=== PATIENT | female | born 1950 | race African-American/Black ===

== ENCOUNTER 2017-11-27 09:27 | Outpatient (CLI) | payer MEDICARE ==
--- NOTE | 2017-11-27 10:49 | BD ---
DEXA BONE DENSITY STUDY: History: Post-menopausal. Lumbar Spine: BMD (g/cm2) L1 1.247 T-Score: +2.3 L2 1.194 T-Score: +1.5 L3 1.167 T-Score: +0.8 L4 1.234 T-Score: +1.6 L1-L4 1.210 T-Score: +1.5 Femoral Neck: 1.001 T-Score: +1.4 Total Femur: 1.210 T-Score: +2.2 Impression: 1. Normal bone mineral density of lumbar spine and left femoral neck. 2. Ten year fracture risk, major osteoporotic fracture 5.1%, hip fracture 0.1%. These fracture probab ilities are calculated for an untreated patient. POS: KUNAL
== END 2017-11-27 09:28 | disposition home or self-care (01) ==
LOC: BICMAMMO 09:27
PROVIDERS: ATTEND Family Medicine
DX: Z12.31 Encounter for screening mammogram for malignant neoplasm of breast (principal); Z13.820 Encounter for screening for osteoporosis; R92.1 Mammographic calcification found on diagnostic imaging of breast; Z78.0 Asymptomatic menopausal state
CPT/HCPCS: 77063; 77067; 77080

== ENCOUNTER 2020-02-09 09:22 | Outpatient (CLI) | payer MEDICARE ==
--- NOTE | 2020-02-09 09:58 | RAD ---
EXAM: XR Lumbar Spine 2 Or 3 View PROVIDED CLINICAL HISTORY: Lumbago COMPARISON: None FINDINGS: 5 nonrib-bearing lumbar-type vertebral bodies are demonstrated. There is slight anterolisthesis of L3 on L4. There is grade 1 anterolisthesis of L4 on L5. Vertebral body heights appear preserved. Mild disc space height loss at L4-5. Lower lumbar facet arthritis. Conspicuous vascular calcification is s een involving the abdominal aorta. Pedicles appear intact. SI joints appear symmetric. IMPRESSION: Lower lumbar disc and facet degenerative change.
== END 2020-02-09 09:23 | disposition home or self-care (01) ==
LOC: BICRAD 09:22
PROVIDERS: ATTEND Physician Assistant
DX: M54.42 Lumbago with sciatica, left side (principal); M47.816 Spondylosis without myelopathy or radiculopathy, lumbar region
CPT/HCPCS: 72100

== ENCOUNTER 2020-06-07 13:48 | Outpatient (CLI) | payer MEDICARE | END 2020-06-07 13:49 | disposition home or self-care (01) | LOC: BICMAMMO 13:48 | PROVIDERS: ATTEND Family Medicine | DX: Z12.31 Encounter for screening mammogram for malignant neoplasm of breast (principal) | CPT/HCPCS: 77063; 77067 ==

== ENCOUNTER 2023-02-24 15:51 | Outpatient (CLI) | payer MEDICARE ==
[2023-02-24 17:08] LABS: #Basophils 0.1 10x3/uL (0.0-0.2); #Eosinphils 0.8 10x3/uL (0.0-0.5); #Monocytes 0.8 10x3/uL (0.0-1.1); #Neutrophils 4.6 10x3/uL (1.5-8.4); %Basophils 0.6 % (0.0-2.0); %Eosinophils 7.5 % (0.0-6.0); %Lymphocytes 43.2 % (18.0-47.0); %Monocytes 6.9 % (0.0-10.0); %Neutrophils 41.4 % (40.0-75.0); Hematocrit 38.2 % (34.9-44.5); Mean Corpuscular Hemoglobin 30.4 pg (27.0-33.0); Mean Corpuscular Volume 89.3 fl (81.6-98.3); Platelet Count 310 10x3/uL (150-450); RBC Distribution Width 13.3 % (11.5-14.5); Red Blood Cell (RBC) Count 4.28 10x6/uL (3.90-5.03); White Blood Cell (WBC) Count 11.1 10x3/uL (3.5-10.5)
[2023-02-24 17:16] LABS: Prothrombin Time 10.6 sec (9.5-12.1)
[2023-02-24 17:21] LABS: Anion Gap 17 mmol/L (10-20); BUN (Urea Nitrogen) 8 mg/dL (9.8-20.1); Calc. Creatinine Clearance 0 mL/min (70-130); Calcium 9.2 mg/dL (7.8-10.44); Carbon Dioxide 21 mmol/L (23-31); Chloride 104 mmol/L (98-107); Estimated GFR 77; Glucose 152 mg/dL (80-115); Potassium 3.5 mmol/L (3.5-5.1); Sodium 138 mmol/L (136-145)
== END 2023-02-24 15:52 | disposition home or self-care (01) ==
LOC: LABBT 15:51
PROVIDERS: ATTEND Orthopaedic Surgery
DX: Z01.818 Encounter for other preprocedural examination (principal); M17.11 Unilateral primary osteoarthritis, right knee
CPT/HCPCS: 80048; 85025; 85610; 87081; 93005; 93010

== ENCOUNTER 2023-02-25 06:36 | Inpatient (IN) | payer MEDICARE ==
[2023-02-25] MEDS ORDERED: Sodium Chloride 0.9% 100 ML ONE ×2 (07:45→09:14)
[2023-02-25] MEDS ORDERED: Tranexamic Acid 1,000 MG/10 ML VIAL ONE (07:45)
[2023-02-25] MEDS ORDERED: Vancomycin (BATCH) 1.5 GM/300 ML BAG ONE (07:45)
[2023-02-25] MEDS ORDERED: Bupivacaine PF 0.5% 30 ML VIAL ONE ×2 (08:18→09:14)
[2023-02-25] MEDS ORDERED: fentaNYL 50 mcg/mL 1 mL Vial ONE ×2 (08:18→12:22)
[2023-02-25] MEDS ORDERED: Midazolam HCl 2 mg/2 ml Vial ONE (08:18)
[2023-02-25] MEDS ORDERED: Bupivacaine HCl 0.5%/Epinephrine 1:200,000/PF 30 ml Vial ONE (09:00)
[2023-02-25] MEDS ORDERED: Acetaminophen 325 MG TAB PO PRN (09:04)
[2023-02-25] MEDS ORDERED: Ondansetron PF 4 MG/2 ML Vial IVP PRN ×2 (09:04→09:45)
[2023-02-25] MEDS ORDERED: diphenhydrAMINE 25 MG CAP PO PRN (09:04)
[2023-02-25] MEDS ORDERED: Promethazine HCl 25 MG/ML VIAL IM PRN ×3 (09:04→10:29)
[2023-02-25] MEDS ORDERED: HYDROcodone/Acetaminophen 10/325 mg Tablet PO PRN ×4 (09:04→09:45)
[2023-02-25] MEDS ORDERED: fentaNYL 50 mcg/mL 1 mL Vial SLOW IVP PRN ×2 (09:04→09:45)
[2023-02-25] MEDS ORDERED: Zolpidem Tartrate 5 MG TAB PO PRN ×2 (09:04→09:45)
[2023-02-25] MEDS ORDERED: PROPOFOL 60 ML ONE (09:10)
[2023-02-25] MEDS ORDERED: Phenylephrine 40 MG/NS 250 ML 250 ML ONE (09:10)
[2023-02-25] MEDS ORDERED: CEFAZOLIN 2 GM VIAL ONE (09:14)
[2023-02-25] MEDS ORDERED: Ropivacaine 0.2% 550 ML 550 ML NERVE BLCK SCH (09:45)
[2023-02-25] MEDS ORDERED: traMADol HCl 50 MG TAB PO PRN (09:45)
[2023-02-25] MEDS ORDERED: Ondansetron PF 4 MG/2 ML Vial ONE (09:58)
[2023-02-25] MEDS ORDERED: Ketorolac Tromethamine 30 MG (1 mL) VIAL ONE (09:58)
[2023-02-25] MEDS ORDERED: Dexamethasone 20 MG/5 ML VIAL ONE (09:58)
[2023-02-25] MEDS ORDERED: PACU-Morphine 4MG/ML VIAL SLOW IVP PRN (10:29)
[2023-02-25] MEDS ORDERED: Ondansetron HCl/PF 4 MG/2 ML Vial IVP PRN (10:29)
[2023-02-25] MEDS ORDERED: HYDROmorphone 2 MG/ML VIAL SLOW IVP PRN (10:29)
[2023-02-25] MEDS ORDERED: fentaNYL PF 100 MCG/2 ML SYRINGE ONE (11:24)
[2023-02-25] MEDS ORDERED: Ketorolac Tromethamine 30 MG (1 mL) VIAL IVP SCH (14:00)
[2023-02-25 17:45] VITALS: BMI 36.0
[2023-02-25] MEDS: Ketorolac Tromethamine 30 MG (1 mL) VIAL IVP SCH ×2 (18:38→18:50)
[2023-02-25] MEDS: CEFAZOLIN 2 GM in Sodium Chloride 0.9% 100 ML IVPB SCH (18:38)
[2023-02-25] MEDS: Gabapentin 300 MG CAP PO SCH ×2 (18:48→20:48)
[2023-02-25] MEDS: Sodium Chloride 0.9% 1,000 ML IV SCH (19:52)
[2023-02-25] MEDS: traMADol HCl 50 MG TAB PO PRN (20:48)
[2023-02-25] MEDS: Aspirin 81 mg Enteric Coated Tablet PO SCH (20:53)
[2023-02-25] MEDS: Ferrous Gluconate 324 MG TAB PO SCH (20:53)
[2023-02-25] MEDS: Senokot S 8.6-50 MG TAB PO SCH (20:53)
[2023-02-25] MEDS: Metoprolol Tartrate 100 MG TAB PO SCH (22:50)
[2023-02-26] MEDS: Ketorolac Tromethamine 30 MG (1 mL) VIAL IVP SCH ×5 (00:22→18:24)
[2023-02-26] MEDS: CEFAZOLIN 2 GM in Sodium Chloride 0.9% 100 ML IVPB SCH (02:30)
[2023-02-26 05:29] LABS: Hematocrit 34.2 % (36.0-47.0); Hemoglobin 11.2 g/dL (12.0-16.0); Mean Corpuscular HGB CONC 32.7 g/dL (32.0-36.0); Mean Corpuscular Hemoglobin 30.2 pg (27.0-31.0); Mean Corpuscular Volume 92.2 fl (78.0-98.0); Mean Platelet Volume 9.1 fL (7.4-10.4); Platelet Count 272 10x3/uL (130-400); RBC Distribution Width 13.2 % (11.5-14.5); Red Blood Cell (RBC) Count 3.71 mill/uL (4.20-5.40)
[2023-02-26] MEDS: Sodium Chloride 0.9% 1,000 ML IV SCH ×2 (08:43→16:00)
[2023-02-26] MEDS: Multivitamin W/ Minerals 1 TAB PO SCH (08:45)
[2023-02-26] MEDS: Aspirin 81 mg Enteric Coated Tablet PO SCH ×2 (08:45→20:52)
[2023-02-26] MEDS: Cyclobenzaprine 10 MG TAB PO SCH (08:46)
[2023-02-26] MEDS: Ferrous Gluconate 324 MG TAB PO SCH ×2 (08:46→20:52)
[2023-02-26] MEDS: Amlodipine 5 MG TAB PO SCH (08:47)
[2023-02-26] MEDS: Senokot S 8.6-50 MG TAB PO SCH ×2 (08:48→20:50)
[2023-02-26] MEDS: Lisinopril 20 MG TAB PO SCH (08:48)
[2023-02-26] MEDS: Gabapentin 300 MG CAP PO SCH ×3 (08:49→20:52)
[2023-02-26] MEDS: Metoprolol Tartrate 100 MG TAB PO SCH ×2 (08:50→20:54)
[2023-02-26] MEDS ORDERED: Citalopram 20 MG TAB PO SCH ×2 (09:00)
[2023-02-26] MEDS: Escitalopram Oxalate 10 mg Tablet PO SCH (10:18)
[2023-02-26] MEDS: Insulin Glargine 30 UNITS/0.3 ML VIAL SC SCH (10:19)
[2023-02-26] MEDS: traMADol HCl 50 MG TAB PO PRN (20:53)
[2023-02-27] MEDS: Ketorolac Tromethamine 30 MG (1 mL) VIAL IVP SCH ×2 (00:06→05:54)
[2023-02-27] MEDS: Sodium Chloride 0.9% 1,000 ML IV SCH ×2 (01:30→12:20)
[2023-02-27 05:52] LABS: Hematocrit 31.3 % (36.0-47.0); Hemoglobin 10.3 g/dL (12.0-16.0); Mean Corpuscular HGB CONC 32.9 g/dL (32.0-36.0); Mean Corpuscular Hemoglobin 30.5 pg (27.0-31.0); Mean Corpuscular Volume 92.6 fl (78.0-98.0); Mean Platelet Volume 9.2 fL (7.4-10.4); Platelet Count 257 10x3/uL (130-400); RBC Distribution Width 13.6 % (11.5-14.5); Red Blood Cell (RBC) Count 3.38 mill/uL (4.20-5.40); White Blood Cell (WBC) Count 12.8 10x3/uL (4.8-10.8)
[2023-02-27] MEDS: Lisinopril 20 MG TAB PO SCH (08:39)
[2023-02-27] MEDS: Insulin Glargine 30 UNITS/0.3 ML VIAL SC SCH (08:40)
[2023-02-27] MEDS: Senokot S 8.6-50 MG TAB PO SCH (08:40)
[2023-02-27] MEDS: Cyclobenzaprine 10 MG TAB PO SCH (08:41)
[2023-02-27] MEDS: Aspirin 81 mg Enteric Coated Tablet PO SCH (08:41)
[2023-02-27] MEDS: Amlodipine 5 MG TAB PO SCH (08:41)
[2023-02-27] MEDS: Escitalopram Oxalate 10 mg Tablet PO SCH (08:41)
[2023-02-27] MEDS: Multivitamin W/ Minerals 1 TAB PO SCH (08:41)
[2023-02-27] MEDS: Ferrous Gluconate 324 MG TAB PO SCH (08:42)
[2023-02-27] MEDS: Gabapentin 300 MG CAP PO SCH (08:42)
[2023-02-27] MEDS: Metoprolol Tartrate 100 MG TAB PO SCH (08:44)
[2023-02-27 11:41] VITALS: TEMP 98.4
[2023-02-27 12:41] VITALS: BP 121/76
== END 2023-02-27 13:49 | disposition home health service (06) | DRG 470 ==
LOC: SDC 06:36 → SURG A 16:15 → OBSVTOIN 02-27 07:08
PROVIDERS: ADMIT Orthopaedic Surgery; ATTEND Orthopaedic Surgery
PROC: 0SRC0J9 Replacement of Right Knee Joint with Synthetic Substitute, Cemented, Open Approach (ICD-10-PCS; principal; 2023-02-25)
DX: M17.11 Unilateral primary osteoarthritis, right knee (principal); E11.9 Type 2 diabetes mellitus without complications; I10 Essential (primary) hypertension; Z98.890 Other specified postprocedural states; Z79.899 Other long term (current) drug therapy
CPT/HCPCS: 36415; 36416; 85027; A4306; C1776; J1100; J1815; J1885; J2250; J2405; J2704; J2795; J3010; J3370; J3490; S0020